=== PATIENT | female | born 1970 | race American Indian/Alaskan Native ===

== ENCOUNTER 2019-04-10 13:35 | Outpatient (CLI) | payer OTHER ==
--- NOTE | 2019-04-11 12:45 | Mammography Report ---
BILATERAL DIGITAL SCREENING MAMMOGRAM WITH CAD INDICATION: Screening. COMPARISONS: None. However, she indicated that she had a mammogram at [facility] 2 years ago. FINDINGS: Craniocaudal and mediolateral oblique views of both breasts were obtained using 2-D digital acquisition. In addition to standard review, the examination was analyzed for possible abnormalities using a computer-assisted detection device (iCAD). There are scattered areas of fibroglandular density. A right inner asymmetry on the CC view requires comparison with the prior mammogram or additional claudio ging. No architectural distortion or suspicious calcifications. The left breast is negative. IMPRESSION: Right asymmetry requiring comparison with the prior mammogram or additional imaging. We will attempt to obtain the previous mammogram from [facility]. BI-RADS CATEGORY 0: INCOMPLETE - NEED ADDITIONAL IMAGING EVALUATION AND/OR PRIOR MAMMOGRAMS FOR COMP ARISON Information is entered into a reminder system for a target due date for the next mammogram. The resul ts and recommendations were sent to the patient by mail. Signer Name: Jose Escamilla MD Signed: 04/11/2019 12:41 PM Workstation Name: [id number]
== END 2019-04-10 13:36 | disposition home or self-care (01) ==
LOC: MAMMO 13:35
PROVIDERS: ATTEND Family Medicine
DX: Z12.31 Encounter for screening mammogram for malignant neoplasm of breast (principal)
CPT/HCPCS: 77067

== ENCOUNTER 2019-08-14 13:32 | Outpatient (CLI) | payer OTHER ==
--- NOTE | 2019-08-14 15:27 | Ultrasound Report ---
RIGHT DIGITAL DIAGNOSTIC MAMMOGRAM WITH CAD 08/14/2019 RIGHT LIMITED BREAST ULTRASOUND INDICATION: Recalled to evaluate a new circumscribed density. ABNORMAL MAMMO TECHNIQUE: Digital right mammographic imaging was performed. Spot compression views were obtained. L imited ultrasound was performed. This examination was interpreted with the benefit of Computer-Aided Detection (CAD) analysis. COMPARISON: 04/10/2019 FINDINGS: Breast Density: There are scattered areas of fibroglandular density. MAMMOGRAPHIC FINDINGS: The lower inner circumscribed mass persists on lateral and spot compression CC views. ULTRASOUND FINDINGS: Targeted ultrasound evaluation was performed of the area of interest. Ultrasou nd of the lower inner right breast demonstrated an oval slightly irregular relatively anechoic mass a t 4:00 2 cm from the nipple. Minimal posterior enhancement. It measures 1.2 x 1.1 x 0.6 cm. IMPRESSION: A 1.2 cm cyst versus solid mass at 4:00 2 cm from the nipple. Recommend ultrasound-guided needle aspiration and ultrasound guided needle biopsy if fluid cannot be aspirated. The patient was informed of the recommendation for needle aspiration at the time of the exam. Follow up recommendation: Biopsy BI-RADS Category 4: Suspicious for Malignancy. A "normal" or negative report should not discourage follow up or biopsy of a clinically significant f inding. A written summary of these findings will be mailed to the patient. The patient will be entered into a mammography reporting system which will generate a reminder letter for the patient's next appointmen t at the appropriate interval. According to the [employer], yearly mammograms are recommended starting at age 40 and continuing as long as a woman is in good health. Breast MRI is recommended for women with an randolph roximately 20-25% or greater lifetime risk of breast cancer, including women with a strong family his tory of breast or ovarian cancer and women who have been treated for Hodgkin's disease. Signer Name: Jose Escamilla MD Signed: 08/14/2019 3:22 PM Workstation Name: [id number]
== END 2019-08-14 13:33 | disposition home or self-care (01) ==
LOC: MAMMO 13:32
PROVIDERS: ATTEND Family Medicine
DX: R92.8 Other abnormal and inconclusive findings on diagnostic imaging of breast (principal)

== ENCOUNTER 2019-10-30 13:11 | Outpatient (CLI) | payer OTHER ==
--- NOTE | 2019-10-30 14:24 | Ultrasound Report ---
ULTRASOUND-GUIDED RIGHT BREAST CYST NEEDLE ASPIRATION The procedure was explained to the patient and informed consent obtained. PROCEDURE: A timeout was called. The skin was cleansed with chloro prep. Using sonographic guidance, 5 mL of 1% lidocaine, and a 18-gauge needle, less than 1 mL of yellowish fluid was removed from the p reviously identified cyst at 4:00 2 cm from the nipple. Because of its benign appearance, the fluid w as discarded. No immediate complications occurred. IMPRESSION: Uncomplicated ultrasound-guided needle aspiration of a benign right breast cyst at 4:00 2 cm from the nipple. Signer Name: Jose Escamilla MD Signed: 10/30/2019 2:19 PM Workstation Name: [id number]
== END 2019-10-30 13:12 | disposition home or self-care (01) ==
LOC: SPVWC 13:11
PROVIDERS: ATTEND Family Medicine
DX: N60.01 Solitary cyst of right breast (principal)
CPT/HCPCS: 76942